=== PATIENT | male | born 1990 | race African-American/Black ===

== ENCOUNTER 2018-10-01 18:27 | Emergency (ER) | payer OTHER ==
[~2018-10-01] VITALS: Ht 185.4 cm; Wt 89.1 kg
[2018-10-01 18:27] VITALS: BP 132/85
[2018-10-01] MEDS ORDERED: BUPIVAC MPF-EPI 0.5%-1:200000 30 ML VIAL. ONE (18:50)
[2018-10-01] MEDS ORDERED: NEOMY/BACITR/POLYMYXIN OINT PACKET. TP ONE (19:12)
--- NOTE | 2018-10-01 19:16 | ED.ADGEN ---
Past History Past Medical History: No Pertinent History Past Surgical History: Other Alcohol Use: Occasionally Drug Use: None Adult General Chief Complaint Chief Complaint laceration HPI HPI This is 28 years old gentleman works at the [employer] presented to the emergency department with laceration to the finger, left ring finger V-shaped 2 cm Review of Systems Review of Systems Constitutional: Denies fever or chills [] Eyes: Denies change in visual acuity, redness, or eye pain [] HENT: Denies nasal congestion or sore throat [] Respiratory: Denies cough or shortness of breath [] Cardiovascular: No additional information not addressed in HPI [] GI: Denies abdominal pain, nausea, vomiting, bloody stools or diarrhea [] : Denies dysuria or hematuria [] Musculoskeletal: able to move it in all direction aganist resistance Integument: Denies rash or skin lesions [] Neurologic: Denies headache, focal weakness or sensory changes [] Endocrine: Denies polyuria or polydipsia [] All other systems were reviewed and found to be within normal limits, except as documented in this note. Current Medications Current Medications Current Medications Medications (Trade) Dose Ordered Sig/Georgiana Start Time Stop Time Status Last Admin Dose Admin Bupivacaine HCl/ Epinephrine Bitart (Sensorcain-Mpf Epi 0.5%-1:[id number]) 30 ml STK-MED ONCE 10/01/18 18:50 10/01/18 18:52 DC Allergies Allergies Allergies Coded Allergies Type Severity Reaction Last Updated Verified No Known Drug Allergies 10/01/18 No Physical Exam Physical Exam Constitutional: Well developed, well nourished, no acute distress, non-toxic appearance. [] HENT: Normocephalic, atraumatic, bilateral external ears normal, oropharynx moist, no oral exudates, nose normal. [] Eyes: PERRLA, EOMI, conjunctiva normal, no discharge. [] Neck: Normal range of motion, no tenderness, supple, no stridor. [] Cardiovascular:Heart rate regular rhythm, no murmur [] Lungs & Thorax: Bilateral breath sounds clear to auscultation [] Abdomen: Bowel sounds normal, soft, no tenderness, no masses, no pulsatile masses. [] Skin: 2 cm laceration , V shape, flap , able to move it against resistance . normal movement and sensation Back: No tenderness, no CVA tenderness. [] Extremities: No tenderness, no cyanosis, no clubbing, ROM intact, no edema. [] Neurologic: Alert and oriented X 3, normal motor function, normal sensory function, no focal deficits noted. [] Psychologic: Affect normal, judgement normal, mood normal. [] Current Patient Data Vital Signs Vital Signs Date Time Temp Pulse Resp B/P (MAP) Pulse Ox O2 Delivery O2 Flow Rate FiO2 10/01/18 18:27 98.5 60 20 98 Room Air EKG EKG [] Radiology/Procedures Radiology/Procedures [] Course & Med Decision Making Course & Med Decision Making routine prep, saige 1 % injected , 5.0 nylon, 4 sutures . wound closed , able to move in all directions against resistance [] Final Impression Final Impression [] Problems: (1) Finger laceration Qualifiers: Qualified Codes: S61.219A - Laceration without foreign body of unspecified finger without damage to nail, initial encounter Dragon Disclaimer Dragon Disclaimer This electronic medical record was generated, in whole or in part, using a voice recognition dictation system. LUKE BUCIO MD Oct 01, 2018 19:16
== END 2018-10-01 19:21 | disposition home or self-care (01) ==
LOC: ER 18:27
DX: S61.215A Laceration without foreign body of left ring finger without damage to nail, initial encounter (principal); X58.XXXA Exposure to other specified factors, initial encounter; Y93.89 Activity, other specified; Y92.89 Other specified places as the place of occurrence of the external cause; Y99.0 Civilian activity done for income or pay
CPT/HCPCS: 12001; 99283

== ENCOUNTER → 2018-10-23 | Outpatient (CLI) | payer OTHER ==
[2018-10-01 18:27] VITALS: BP 132/85
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
== END | disposition home or self-care (01) ==
LOC: RAD 09:03
PROVIDERS: ATTEND Registered Nurse
DX: M79.641 Pain in right hand (principal)
CPT/HCPCS: 73120

== ENCOUNTER 2018-11-05 10:45 | Emergency (ER) | payer OTHER ==
[~2018-11-05] VITALS: Ht 185.4 cm; Wt 89.1 kg
[2018-11-05] MEDS ORDERED: ceFAZolin SODIUM 1 GM VIAL ONE (10:58)
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
[2018-11-05] MEDS ORDERED: IOHEXOL 300 MG/ML 75 ML VIAL. IV ONE (11:00)
[2018-11-05] MEDS ORDERED: IV NORMAL SALINE 50ML 50 ML ONE (11:00)
[2018-11-05] MEDS ORDERED: IV NORMAL SALINE 1,000ML 1,000 ML IV SCH (11:00)
[2018-11-05 11:01] LABS: BASO # 0.1 x10^3/uL (0.0-0.2); BASO % 1 % (0-3); EOS # 0.1 x10^3/uL (0.0-0.7); EOS % 1 % (0-3); HEMATOCRIT 45.3 % (39.0-53.0); HEMOGLOBIN 15.6 g/dL (13.0-17.5); LYMPH # 2.9 x10^3/uL (1.0-4.8); LYMPH % 43 % (24-48); MEAN CORPUSCULAR HEMOGLOBIN 31 pg (25-35); MEAN CORPUSCULAR HGB CONC 34 g/dL (31-37); MEAN CORPUSCULAR VOLUME 90 fL (79-100); MONO # 0.5 x10^3/uL (0.0-1.1); MONO % 7 % (0-9); NEUT # 3.1 x10^3uL (1.8-7.7); NEUT % 48 % (31-73); PLATELET COUNT 223 x10^3/uL (140-400); RED BLOOD COUNT 5.06 x10^6/uL (4.30-5.70); RED CELL DISTRIBUTION WIDTH 12.9 % (11.5-14.5); WHITE BLOOD COUNT 6.6 x10^3/uL (4.0-11.0)
[2018-11-05 11:17] LABS: ALBUMIN 4.3 g/dL (3.4-5.0); ALBUMIN/GLOBULIN RATIO 1.2 (1.0-1.7); CALCIUM 9.2 mg/dL (8.5-10.1); CREATININE 1.5 mg/dL (0.7-1.3); GFR 66.5; POTASSIUM 3.7 mmol/L (3.5-5.1); TOTAL BILIRUBIN 1.4 mg/dL (0.2-1.0); TOTAL PROTEIN 7.9 g/dL (6.4-8.2)
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
--- NOTE | 2018-11-05 11:44 | EKG ---
[address] [address] Test Date: 2018-11-05 Test Time: 11:07:29 Pat Name: DESHAUN SAVAGE Department: Room: Gender: M Agility Instructor: ZELALEM : 1990 Requested By: ARAM KOLB Order Number: [id number] Reading MD: Pedro Perez Measurements Intervals Craig Rate: 98 P: 90 DE: 136 QRS: 68 QRSD: 98 T: 50 QT: 342 QTc: 438 Interpretive Statements SINUS RHYTHM QRS(T) CONTOUR ABNORMALITY CONSIDER ANTEROSEPTAL MYOCARDIAL DAMAGE CONSIDER INFERIOR MYOCARDIAL DAMAGE POSSIBLY ABNORMAL ECG RI6.01 No previous ECG available for comparison Electronically Signed On 11-09-2018 10:43:58 [employer] by Pedro Perez
[2018-11-05 12:57] LABS: AMPHETAMINE/METHAMPHETAMINE NEG (NEG); BARBITURATES NEG (NEG); BENZODIAZEPINES NEG (NEG); CANNABINOIDS NEG (NEG); COCAINE NEG (NEG); METHADONE NEG (NEG); OPIATES NEG (NEG); PHENCYCLIDINE NEG (NEG)
[2018-11-05 13:00] LABS: BACTERIA,URINE 0 /HPF (0-FEW); BILIRUBIN,URINE NEG (NEG); CLARITY,URINE CLEAR; COLOR,URINE YELLOW; GLUCOSE,URINE NEG (NEG); NITRITE,URINE NEG (NEG); RBC,URINE 0 /HPF (0-2); SQUAMOUS EPITHELIAL CELL,UR OCC /LPF; UROBILINOGEN,URINE 0.2 mg/dL (0.2 mg/dL); WBC,URINE 0 /HPF (0-4)
[2018-11-05 14:22] VITALS: BP 116/76
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
== END 2018-11-05 15:10 | disposition short-term general hospital (02) ==
LOC: ER 10:45
DX: S31.110A Laceration without foreign body of abdominal wall, right upper quadrant without penetration into peritoneal cavity, initial encounter (principal); W26.8XXA Contact with other sharp object(s), not elsewhere classified, initial encounter; Y93.89 Activity, other specified; Y92.148 Other place in prison as the place of occurrence of the external cause; Y99.0 Civilian activity done for income or pay
CPT/HCPCS: 36415; 71045; 71260; 74177; 80053; 80307; 81001; 83605; 83690; 85025; 85610; 85730; 86850; 86900; 86901; 93005; 96365; 99285; G0480; J0690; Q9967; J7030

== ENCOUNTER 2019-05-01 16:59 | Emergency (ER) | payer OTHER ==
[~2019-05-01] VITALS: Ht 185.4 cm; Wt 92.5 kg
[2019-05-01 17:05] VITALS: BP 116/60
[2019-05-01] MEDS ORDERED: MELO7.5T29 PO (17:21)
[2019-05-01] MEDS ORDERED: AMOX1TAB61 PO (17:21)
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
[2019-05-01] MEDS ORDERED: DIPHTH,PERTUSS(ACELL),TET TOX 0.5 ML DISP.SYRIN. VAX IM ONE (17:45)
== END 2019-05-01 17:36 | disposition home or self-care (01) ==
LOC: ER 17:05
DX: S61.012A Laceration without foreign body of left thumb without damage to nail, initial encounter (principal); W50.3XXA Accidental bite by another person, initial encounter; Y93.89 Activity, other specified; Y92.89 Other specified places as the place of occurrence of the external cause; Y99.0 Civilian activity done for income or pay
CPT/HCPCS: 86703; 86705; 86709; 86803; 87340; 90471; 90715; 99284

== ENCOUNTER 2019-08-30 19:20 | Emergency (ER) | payer OTHER ==
[~2019-08-30] VITALS: Ht 185.4 cm; Wt 89.1 kg
[~2019-08-30 19:20] MED LIST: AMOX1TAB61 PO; MELO7.5T29 PO
[2019-08-30 19:25] VITALS: BP 105/65
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
[2019-08-30] MEDS ORDERED: MELO7.5T29 PO (20:34)
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
== END 2019-08-30 20:55 | disposition home or self-care (01) ==
LOC: ER 19:20
DX: S63.641A Sprain of metacarpophalangeal joint of right thumb, initial encounter (principal); Y08.89XA Assault by other specified means, initial encounter; Y93.89 Activity, other specified; Y92.89 Other specified places as the place of occurrence of the external cause; Y99.0 Civilian activity done for income or pay
CPT/HCPCS: 29125; 73130; 99284